=== PATIENT | male | born 1970 ===

== ENCOUNTER 2024-10-04 05:40 | Day surgery (SDC) | payer OTHER ==
[2024-09-26 08:40] LABS: URINE APPEARANCE Clear; URINE BILIRRUBIN Negative (NEGATIVE); URINE BLOOD Negative; URINE COLOR Yellow; URINE GLUCOSE Negative (NEGATIVE); URINE KETONE Negative (NEGATIVE); URINE LEUKOCYTE Negative; URINE NITRATE Negative; URINE PROTEIN Negative (NEGATIVE); URINE UROBILINOGEN 0.2 E.U./dl
[2024-09-26 08:43] LABS: URINE BACTERIA 8.5 uL (0.0-1933); URINE RBC 4.1 uL (0.0-20.8); URINE WBC 3.2 uL (0.0-23.2)
[2024-09-26 08:52] VITALS: BP 129/75
[2024-09-26 09:08] LABS: URINE CAST 0.14 uL (0.0-1.40); URINE EPITHELIAL CELLS 1.2 uL (0.0-38.8)
[2024-09-26 09:09] LABS: INR 1.03; PROTHROMBIN TIME 11.2 SECONDS (9.0-11.5)
[2024-09-26 09:54] LABS: BILIRUBIN TOTAL 0.37 mg/dL (0.3-1.2); CALCIUM 8.9 mg/dL (8.5-10.1); CREATININE SERUM 0.8 mg/dL (0.70-1.30); POTASSIUM 5.03 mEq/L (3.5-5.1)
[2024-09-26 10:02] LABS: HEMATOCRIT 45.8 % (40.1-51.0); HEMOGLOBIN 15.4 g/dL (13.7-17.5); MEAN CORPUSCULAR HEMOGLOBIN 29.7 pg (25.6-32.2); PLATELET COUNT 313 K/uL (163-369); RED BLOOD COUNT 5.19 M/uL (4.63-6.08); RED CELL DISTRIBUTION WIDTH 13.4 % (11.6-14.4)
[2024-09-26 10:03] LABS: BASO % 1.4 % (0.1-1.2); EOS # 0.13 (0.04-0.54); EOS % 1.3 % (0.7-7.0); LYMPH % 26.2 % (19.3-53.1); MONO # 0.67 (0.24-0.82); MONO % 6.8 % (4.7-12.5); NEUT # 6.36 (1.56-6.13); NEUT % 64.1 % (34.0-71.1)
[~2024-10-04] VITALS: Ht 165.1 cm; Wt 65.3 kg
[~2024-10-04 05:40] MED LIST: MELOXICAM15 MG PO; PEPCID40 MG PO
[2024-10-04] MEDS ORDERED: CEFAZOLIN SODIUM 1,000 MG VIAL ONE (07:31)
[2024-10-04] MEDS ORDERED: MORPHINE SULFATE 4 MG/ML VIAL IV ONE ×2 (10:20→11:35)
== END 2024-10-04 12:25 | disposition home or self-care (01) ==
LOC: CIR.AMB 05:40
PROVIDERS: ATTEND Surgery
DX: K80.10 Calculus of gallbladder with chronic cholecystitis without obstruction (principal)